=== PATIENT | male | born 1945 | race Caucasian/White ===

== ENCOUNTER → 2018-02-27 | Outpatient (CLI) | payer MEDICARE ==
[~2018-02-27] MED LIST: ATOR20TA65 PO; ENOX60DI7 SQ; METO-408 PO; RAMI10CA69 PO; WARF7.5T49 PO
== END | disposition home or self-care (01) ==
LOC: SHCH 10:45
PROVIDERS: ATTEND Internal Medicine Cardiovascular Disease
DX: I10 Essential (primary) hypertension (principal)
CPT/HCPCS: 93306

== ENCOUNTER 2020-07-31 07:24 | Day surgery (SDC) | payer MEDICARE ==
[2020-07-25 12:09] LABS: BASOPHILS % (AUTO) 0.9 % (0.0-5.0); EOSINOPHILS % (AUTO) 2.3 % (0.0-8.0); HEMATOCRIT 43.9 % (42-54); LYMPHOCYTES % (AUTO) 16.3 % (21.0-51.0); MEAN CORPUSCULAR HEMOGLOBIN 29.9 pg (27.0-33.0); MEAN CORPUSCULAR VOLUME 90.5 fL (79-99); MONOCYTES % (AUTO) 6.7 % (3.0-13.0); NEUTROPHILS % (AUTO) 73.5 % (40.0-77.0); PLATELET COUNT (AUTO) 200 K/uL (130-400); RED BLOOD CELL COUNT(AUTO) 4.85 MIL/uL (4.50-6.20)
[2020-07-25 12:09] LABS: APPEARANCE,URINE Clear (CLEAR); BILIRUBIN,URINE Negative (NEGATIVE); COLOR,URINE Yellow (YELLOW); GLUCOSE, URINE (UA) Negative (NEGATIVE); KETONES,URINE Negative (NEGATIVE); LEUKOCYTE ESTERASE ,URINE Trace (NEGATIVE); NITRATE,URINE Negative (NEGATIVE); OCCULT BLOOD,URINE Trace (NEGATIVE); PROTEIN,URINE Negative (NEGATIVE)
[2020-07-25 12:16] LABS: POTASSIUM 4.7 mmol/L (3.5-5.1)
[2020-07-25 12:28] LABS: BACTERIA,URINE Rare /HPF (None Seen); RBC,URINE 0-1 /HPF (0-1); SQUAMOUS EPITHELIAL CELL,UR None Seen /HPF (0-2); WBC,URINE 0-1 /HPF (0-1)
[2020-07-25 13:42] LABS: INR 3.09 (0.85-1.15); PARTIAL THROMBOPLASTIN TIME 37.6 SEC (26.3-35.5); PROTHROMBIN TIME 29.8 SEC (9.6-11.6)
[2020-07-28 11:44] VITALS: BP 148/74
[~2020-07-31] VITALS: Ht 168.9 cm; Wt 68.9 kg
[2020-07-31] VITALS (16 sets, daily range): BP systolic 120–139; BP diastolic 62–81
[~2020-07-31 07:24] MED LIST changes: -ATOR20TA65 PO; +ROSU20TA31 PO
[2020-07-31] MEDS ORDERED: LACTATED RINGERS 1000ML 1,000 ML IV ONE (07:33)
[2020-07-31] MEDS ORDERED: GENTAMICIN 80 MG/NS 100 ML PB 100 ML IV ONE (07:46)
[2020-07-31] MEDS ORDERED: LEVO750T46 PO (08:38)
[2020-07-31] MEDS: CEFTRIAXONE SODIUM 1 GM ONE ×2 (08:39→09:52)
[2020-07-31] MEDS ORDERED: LIDOCAINE PF 2% 5ML ABBOJECT ONE ×2 (09:11→09:20)
[2020-07-31] MEDS ORDERED: MIDAZOLAM HCL 1 MG/ML 2ML VIAL ONE ×2 (09:11→09:21)
[2020-07-31] MEDS ORDERED: SUCCINYLCHOLINE 200MG/10ML SYR ONE (09:11)
[2020-07-31] MEDS ORDERED: DEXAMETHASONE SOD PHOSPHATE 10MG/ML 1ML VIAL ONE (09:11)
[2020-07-31] MEDS ORDERED: ROCURONIUM 10MG/1ML SYR 10 MG/ML ML ONE ×2 (09:12→09:46)
[2020-07-31] MEDS ORDERED: PROPOFOL 10 MG/ML 20ML VIAL IV ONE ×2 (09:12→09:21)
[2020-07-31] MEDS ORDERED: GLYCOPYRROLATE 1 MG/5 ML SYRINGE ONE (09:12)
[2020-07-31] MEDS ORDERED: NEOSTIGMINE 5MG/5ML SYR IV ONE (09:12)
[2020-07-31] MEDS ORDERED: ONDANSETRON HCL 4 MG/2 ML VIAL ONE (09:12)
[2020-07-31] MEDS ORDERED: FENTANYL CITRATE PF 50 MCG/1 ML 2ML VIAL ONE ×2 (09:12→09:22)
[2020-07-31 09:17] LABS: INR 1.11 (0.85-1.15)
[2020-07-31 09:18] LABS: PARTIAL THROMBOPLASTIN TIME 30.8 SEC (26.3-35.5)
[2020-07-31] MEDS ORDERED: EPHEDRINE SULFATE 50 MG/ML AMPULE ONE (10:02)
== END 2020-07-31 11:50 | disposition home or self-care (01) ==
LOC: DAH 07:24
PROVIDERS: ATTEND Urology
DX: D29.1 Benign neoplasm of prostate (principal); Z20.822 Contact with and (suspected) exposure to COVID-19; I10 Essential (primary) hypertension; E78.5 Hyperlipidemia, unspecified; Z79.01 Long term (current) use of anticoagulants
CPT/HCPCS: 36415 ×2; 55700; 71045; 76872; 80048; 81001; 85025; 85610 ×2; 85730 ×2; 87088; 88305; 88341; 88342; 93005; A4215 ×2; A4221; A4222; A4223; A4663; A6260; C9803; J0330; J0696; J1580; J2001 ×2; J2250; J2704; J2710; J3010; J3490 ×2; J7120 ×2; U0003; 76942; J1100; J2405

== ENCOUNTER → 2024-02-21 | Outpatient (CLI) | payer MEDICARE ==
[~2024-02-21] MED LIST changes: +LEVO750T68 PO; -RAMI10CA69 PO; +RAMI10CA76 PO; -ROSU20TA31 PO; +ROSU20TA98 PO
--- NOTE | 2024-02-21 13:45 | HMCIMG ---
LUMBAR W FLEXION/EXTENSION REASON: LOW BACK PAIN. COMPARISON: None TECHNIQUE: 4 images of lumbar spine were obtained including flexion and extension views. FINDINGS: Superior endplate compression is seen of L2 with 20% loss of height. Disc space narrowing is seen at L1-L2 and L4-L5 levels degenerative changes are seen with spondylosis. IMPRESSION: Findings at described above.
== END | disposition home or self-care (01) ==
LOC: LAB 12:51
PROVIDERS: ATTEND Physical Medicine & Rehabilitation
DX: M47.26 Other spondylosis with radiculopathy, lumbar region (principal); M48.062 Spinal stenosis, lumbar region with neurogenic claudication; M54.50 Low back pain, unspecified
CPT/HCPCS: 72114

== ENCOUNTER → 2024-03-01 | Outpatient (CLI) | payer MEDICARE ==
--- NOTE | 2024-03-01 14:32 | HMCIMG ---
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 Images were acquired from mid body T10 through the mid sacrum. FINDINGS: There is interspace narrowing at L1-2. There is mild narrowing at L4-5. Alignment is normal. There are no suspicious focal osseous lesions. Axial images show ligamentum flavum and facet hypertrophic changes. These findings result in moderate spinal stenosis at the L4-5 level, AP diameter between the 6 and 7 mm. There is bilateral lateral recess stenosis at the L3-4 level. Remaining interspaces are widely patent. There is mild annular bulging at multiple level without discrete focal disc herniation. There is moderate to marked neural foraminal narrowing at L3-4 and L4-5 bilaterally. Remaining foramina appear preserved. Surrounding soft tissues appear unremarkable. IMPRESSION: 1. Lumbar degenerative changes as described. 2. Mild to moderate spinal stenosis L4-5, there is bilateral lateral recess stenosis at L3-4 3. Moderate bilateral neural foraminal narrowing at L3-4 and L4-5.
== END | disposition home or self-care (01) ==
LOC: RAH 13:04
PROVIDERS: ATTEND Physical Medicine & Rehabilitation
DX: M47.26 Other spondylosis with radiculopathy, lumbar region (principal); M51.360 Other intervertebral disc degeneration, lumbar region with discogenic back pain only; M48.062 Spinal stenosis, lumbar region with neurogenic claudication
CPT/HCPCS: 72148